=== PATIENT | male | born 1975 | race Caucasian/White ===

== ENCOUNTER 2023-09-11 01:41 | Day surgery (SDC) | payer OTHER, SELFPAY ==
[2023-09-09 10:56] VITALS: BMI 25.9
--- NOTE | 2023-09-09 11:00 | PC.NURSE ---
Report to the Outpatient Waiting Room, entrance under the green pavilion located off [facility], at time 10:00 on date 09/11/23 Planned Procedure Time: 12:00. Time changes happen often and if your time is changed the preop area will call you the afternoon before. - You and your visitor will be asked to self-screen and do not enter if you have any COVID symptoms. - A mask is optional within the hospital at this time. Patients may have clear liquids (water, carbonated beverages, clear teas, apple juice) until 3 hours prior to surgery with a maximum of 20 ounces. - No food from midnight until time of surgery Take the following medications with a SIP of water the morning of surgery: N/A DO NOT STOP ANY OF YOUR OTHER PRESCRIPTION MEDICATIONS PRIOR TO SURGERY ?EXCEPT THE FOLLOWING Medications to discontinue per physician: N/A Date to take last dose: N/A Please no make-up, nail malawian, hairspray, perfume, deodorant, or body powder the day of surgery. No jewelry (including any body piercings) or valuables the day of surgery, leave them at home. Please take a shower or bath the night before, or the morning of, surgery with an antibacterial soap. Wear comfortable, loose fitting clothing. - Jewelry must be removed prior to entering the operating room. Rings and piercings that are not removed may be cut off. - The hospital will not accept responsibility for valuables. - Please leave all valuables, including medications, at home the day of surgery. If you are going home after surgery, a licensed regional refrigerated cdl truck driver must drive you home. - NO public transportation without another adult if you receive anesthesia. - We recommend that an adult stay with you for 24 hours following discharge. - We also recommend that you do not drive, make important decision, drink alcoholic beverages, or take any drugs that were not prescribed by your health care provider for at least 24 hours after your discharge time. Follow any additional instructions given to you from your surgeon. If you or anyone in your household have experienced Covid symptoms in the past week, please notify your surgeon or the nurse liaison at the phone number below for possible testing. Telephone instructions given to PT - CHRISTINE WILLIAMSON and asked if any additional questions and then verbalized understanding. Patient advised to call surgeon office or pre surgery nurse liaison [phone] if any additional questions.
[2023-09-11] VITALS (17 sets, daily range): BP systolic 120–154; BP diastolic 75–96; PULSE 68–93; RESP 12–18; TEMP 36.5–36.8; O2SAT 94–100
[2023-09-11] MEDS: LACTATED RINGERS 1,000 ML 30 ML IV CONT ×3 (11:00→15:19)
[2023-09-11] MEDS: KETOROLAC 15 MG/ML VIAL (*BKC) IV PUSH (11:00)
[2023-09-11] MEDS: ACETAMINOPHEN 500 MG TABLET 1000 MG PO (11:00)
--- NOTE | 2023-09-11 11:10 | P.PNAN_ITS ---
Anes - Initial Pre Proc Eval Procedure: Operation Date: 09/11/23 12:00 Proposed Procedures p Robotic Assisted Bilateral Inguinal Hernia Repair with Mesh - Jyoti Gregory MD Date/Time: 09/11/23 11:10 Surgeon: Jyoti Gregory MD Pre Op Diagnosis: Raza Ing Hernias Patient Data Age: 48 Gender: M Height: 1.75 m Weight: 79.5 kg Allergies Allergy/AdvReac Type Severity Reaction Status Date / Time penicillin V Allergy Mild Unknown Verified 09/09/23 10:55 Home Medications Medication Instructions Recorded Confirmed Type No Home Medications 05/28/23 09/09/23 History Patient hx anesthesia problems: none Family hx anesthesia problems: none Results Review: All pre-operative results and documents have been reviewed as part of the pre- operative evaluation. [facility] Surgical History Surgical History History of repair of rotator cuff Family History Family History Father Stomach cancer Mother Breast cancer Social History Social History (Updated 08/12/23 @ 13:14 by Syeda Sin MA) Smoking status: Never smoker Alcohol intake: current Drinks per week: 3 Substance use: never Substance use type: does not use Living arrangements: with family Occupation/Education: occupation Gender identity (if verbalized by the patient): Male Sexual Orientation (if Verbalized by the Patient): Straight or Heterosexual Spiritual care concerns: No Anes - Eval Final PreProcedure Day of Procedure 09/11/23 11:10 Patient weight: overweight Heart: regular rate and rhythm Lungs: clear to auscultation Airway: Mallampati scale class II Neurological: alert and oriented Last oral intake: >/= 8 hours ASA classification: II Emergent: no Anesthetic plan: proceed Anesthesia type and monitoring: general ETT and standard monitoring Results Review: All pre-operative results and documents have been reviewed as part of the pre- operative evaluation. Informed Consent: The patient's anesthetic plan and its attendant risks and benefits were discussed with the patient/family/POA. Questions were solicited and answers provided to the satisfaction of the patient/family/POA.
--- NOTE | 2023-09-11 11:54 | WPDHPUPDATE1 ---
History and Physical Update Update Date/Time: 09/11/23 11:54 History and Physical has been reviewed, including an updated exam of the patient. There are NO changes in the patient's condition. Risks, benefits, and alternatives have been discussed and questions answered. Patient agrees to proceed with procedure.
--- NOTE | 2023-09-11 11:55 | P.HP_ITS ---
H&P: HPI History of Present Illness Date/Time: 09/11/23 11:55 Chief Complaint: bilateral inguinal hernia Narrative: Chandan is a 48 y/o male who presents to the office at the request of Dr. Woodard for evaluation of bilateral inguinal hernias. Patient states he noticed bulging in both groins about 4-5 months ago. He states the bulges are reducible. He states the right groin bulge is larger then the left. He reports discomfort with coughing and with heavy lifting. He denies any issues with urination or bowel habits. Review of Systems Review of Systems: All systems reviewed & are unremarkable except as noted in HPI and below PMFSH Surgical History Surgical History History of repair of rotator cuff Family History Family History Father Stomach cancer Mother Breast cancer Social History Social History Smoking status: Never smoker Alcohol intake: current Drinks per week: 3 Substance use: never Substance use type: does not use Living arrangements: with family Occupation/Education: occupation Gender identity (if verbalized by the patient): Male Sexual Orientation (if Verbalized by the Patient): Straight or Heterosexual Spiritual care concerns: No Meds Home Medications and Allergies Home Medications Medication Instructions Recorded Confirmed Type No Home Medications 05/28/23 09/11/23 History Allergies Allergy/AdvReac Type Severity Reaction Status Date / Time penicillin V Allergy Mild Unknown Verified 09/11/23 11:22 Vital Signs Vital Signs - 24 hr 09/11/23 11:24 Temperature 36.8 C Pulse Rate 74 Respiratory Rate 16 Blood Pressure 128/95 H Pulse Oximetry 100 Oxygen Delivery Room Air Exam Const: General: cooperative, comfortable and no acute distress Resp: Auscultation: clear to auscultation bilaterally Cardio: Rate: regular rate Rhythm: regular rhythm GI: Inspection: normal to inspection and visible herniation GI Palp: Yes abdominal tenderness, Yes Soft to palpation and Yes Hernia present Other: bilateral inguinal hernia, reducible Assessment and Plan Assessment and plan (1) Bilateral inguinal hernia: Qualifiers: Obstruction and gangrene presence: without obstruction or gangrene Recurrence: non-recurrent Qualified Code(s): K40.20 - Bilateral inguinal hernia , without obstruction or gangrene, not specified as recurrent Code(s): K40.20 - Bilateral inguinal hernia, without obstruction or gangrene, not specified as recurrent Status: Acute Assessment and Plan: will setup for robotic assisted repair c mesh
[2023-09-11] MEDS: ceFAZolin 2 GM/D5W 50 ML 2 GM/50 ML BAG IVPB (12:05)
[2023-09-11] MEDS: BUPIVACAINE/EPINEPHRINE 0.5% 50 ML VIAL 30 ML INFILTRATE (12:39)
[2023-09-11] MEDS: fentaNYL CITRATE INJ (*CRX) 100 MCG/2 ML VIAL 25 MCG IV PUSH ×8 (13:40→14:38)
--- NOTE | 2023-09-11 13:44 | W.PM.PROC2 ---
Procedure Note - Detailed Date of Procedure 09/11/23 Pre-op Diagnosis bilateral inguinal hernia Post-op Diagnosis Same Procedure Performed robotic assisted bilateral inguinal hernia repair with mesh Surgeon Jyoti Gregory MD Anesthesia General Indications Pt is a 48 y/o M presenting c few mo h/o bulging, discomfort in bilateral groin area. Workup significant for bilateral inguinal hernia right greater than left. Findings Bilateral indirect inguinal hernia right greater than left Description of Procedure Patient was brought into the operating room and placed in the supine position. After adequate induction of general anesthesia, the patient was prepped and draped in normal sterile fashion. A time-out was then done to verify the patient's identity, as well as the procedure being performed. I began by making a 8 mm incision in the supraumbilical region, a Veress needle was then placed into the peritoneal cavity. CO2 gas was then insufflated and after adequate pneumoperitoneum was achieved, the Veress needle was removed. I then placed an 8 mm trocar through this incision. I then placed the endoscope through this trocar site and under direct visualization placed 2 further 8 mm ports in the right and left mid abdomen. The [employer] robot was then docked to the 3 trocar sites. I then scrubbed out and went to the robotic console. Upon examining the pelvis, it was noted that the patient had a moderate sized right inguinal hernia. The left side was examined and a small hernia defect was noted. I began by making a preperitoneal flap approximately 6 cm superior to the right sided defect. This flap was carried medially past the umbilical ligaments and laterally to the transversalis. It then began dissection of my medial compartment taking this down to the pubic tubercle. I then began the lateral dissection taking this down to the transversalis fascia. Once these compartments were achieved, I began dissection around the cord structures. A moderate sized indirect hernia was noted at this point. Using careful dissection, was able to reduce indirect hernia sac off the cord structures. There is also a large lipoma of the cord that was reduced as well. Once this was adequately done, I went ahead and placed a large piece of 3D Max mesh into the abdominal cavity. The mesh was carefully positioned, centering the center of the mesh over the indirect defect. Once this was done, was very satisfied with our repair. Using 3-0 Vicryl sutures, I tacked the mesh medially to Sergei's ligament. Two lateral sutures were placed from the mesh to the transversalis fascia. I then began on the left side by making a preperitoneal flap approximately 6 cm superior to the left sided defect. This flap was carried medially past the umbilical ligaments and laterally to the transversalis. It then began dissection of my medial compartment taking this down to the pubic tubercle. I then began the lateral dissection taking this down to the transversalis fascia. Once these compartments were achieved, I began dissection around the cord structures. A small indirect hernia was noted at this point. Using careful dissection, was able to reduce indirect hernia sac off the cord structures. Once this was adequately done, I went ahead and placed a large piece of 3D Max mesh into the abdominal cavity. The mesh was carefully positioned, centering the center of the mesh over the indirect defect. Once this was done, was very satisfied with our repair. Using 3-0 Vicryl sutures, I tacked the mesh medially to Sergei's ligament. Two lateral sutures were placed from the mesh to the transversalis fascia.I then closed the peritoneal flap bilaterally with running 2.0 V Lock suture x 2. The abdomen was then desufflated, and all ports were removed. All incisions were then closed with the 4.0 monocryl suture. Dermabond was placed on each wound. The patient tolerated the procedure well, was extubated in the op
[2023-09-11] MEDS: HYDROmorphone HCL INJ (*CRX) 1 MG/ML SYR 0.5 MG IV PUSH ×4 (15:20→15:35)
[2023-09-11] MEDS: oxyCODONE HCL (*CRX) 5 MG TAB IR PO (17:20)
[2023-09-11] MEDS: ONDANSETRON INJ 4 MG/2 ML VIAL IV PUSH (17:36)
== END 2023-09-11 18:02 | disposition home or self-care (01) ==
PROVIDERS: PCP Family Medicine; Visit Provider Surgery
PROC: 8E0Y4CZ Robotic Assisted Procedure of Lower Extremity, Percutaneous Endoscopic Approach (ICD-10-PCS; CPT 49650; principal; 2023-09-11 12:00)
DX: K40.20 Bilateral inguinal hernia, without obstruction or gangrene, not specified as recurrent (principal); D17.6 Benign lipomatous neoplasm of spermatic cord; F10.90 Alcohol use, unspecified, uncomplicated
CPT/HCPCS: 49650; S2900; 36415; 86850; 86900; 86901; A9270; C1781; J0690; J1100; J1170; J1885; J2250; J2405; J2704; J3010; J7030; J7120